=== PATIENT | male | born 1960 | race Caucasian/White ===

== ENCOUNTER 2019-12-22 19:21 | Emergency (ER) | payer MEDICARE, SELFPAY ==
[2019-12-22 19:46] VITALS: BP 132/90; PULSE 119; RESP 20; TEMP 37.6; O2SAT 99; BMI 23.6
--- NOTE | 2019-12-22 20:24 | ED.SEIZURE ---
HPI - Seizure General Chief Complaint: Seizure Stated Complaint: Seizure at approximately 18:00 Time Seen by Provider: 12/22/19 19:55 Source: patient and family Mode of arrival: Ambulatory Limitations: no limitations History of Present Illness HPI Narrative: 59-year-old male without a prior history of seizures here for evaluation of what is family describes a seizure. He is at his normal state health. He stated that he walked into kitchen. He states that he felt like the back of his neck ?seized up ?next thing he remembers is his family around him. His family states that they lowered him to the ground. He did not hit his head. He stated that he had a generalized shaking for approximately 20 seconds. They stated that he was somewhat confused afterwards for of 10-15 minutes. No loss of bowel or bladder. Patient does admit to being an alcoholic. He states that he did drink alcohol just prior to this seizure. He has never withdrawn from alcohol in the past. There was no trauma. Not on anticoagulation. Does not take any medications. He does state that he is in a fairly stressful situation at the moment. Had a family member recently . He is visiting this area from [facility]. No fevers. No neck pain. Related Data Allergies Allergy/AdvReac Type Severity Reaction Status Date / Time No Known Drug Allergies Allergy Verified 12/22/19 19:46 Review of Systems Constitutional Constitutional: Denies chills, Denies fever(s), Denies frequent falls and Denies headache(s) ENT Ears, Nose, Mouth, and Throat: Denies vertigo, Denies dizziness and Denies headache(s) Cardiovascular Cardiovascular: Denies chest pain, Denies rapid heart rate, Denies palpitations and Denies dyspnea Respiratory Respiratory: Denies cough and Denies dyspnea Gastrointestinal Gastrointestinal: Denies abdominal pain, Denies nausea and Denies vomiting Genitourinary Genitourinary: Denies dysuria Musculoskeletal Musculoskeletal: Denies myalgias and Denies arthralgias Integumentary/Breasts Skin/Breast: Denies lesions and Denies rash Neurologic Neurologic: Denies vertigo, Denies dizziness, Denies frequent falls, Denies headache(s) and Reports seizure-like activity Endocrine Endocrine: Denies palpitations Hematologic/Lymphatic Hematologic/Lymphatic: Denies easy bruising Patient History Medical History Alcoholism (Acute) Hypertension (Acute) Social History lives independently: Yes Exam Initial Vital Signs Initial Vital Signs: Vital Signs Temperature 99.7 F H 12/22/19 19:46 Pulse Rate 119 H 12/22/19 19:46 Respiratory Rate 20 12/22/19 19:46 Blood Pressure 132/90 12/22/19 19:46 Pulse Oximetry 99 12/22/19 19:46 Const General: cooperative, comfortable, well developed and well groomed Limitations: mental status not altered HENTX Head: normal to inspection and normocephalic Resp Effort & Inspection: normal respiratory effort Auscultation: clear to auscultation bilaterally Cardio Rate: tachycardic Rhythm: regular rhythm Pulses: radial pulses present GI Inspection: non-distended Palpation: soft Skin Lesions: no lesions Rashes: no rashes Neuro General: alert, awake and oriented x3 Cognition: normal cognition Speech: speech normal Gait: normal gait Motor: muscle tone normal throughout Sensory Exam: no sensory deficits noted Extrem General: normal to inspection and capillary refill normal Psych Appearance: grossly normal and well kempt Scores GCS [place] coma scale eye opening: Spontaneous [place] coma scale verbal response: Orientated [place] coma scale motor response: Obey commands Mik coma scale total score: 15 Course Orders Ordered: ED Orders 12/22/19 20:45 Basic Metabolic Panel Stat Complete Blood Count AUTO DIFF Stat Ethanol (ETOH) Stat Prolactin Stat Vital Signs Vital signs: Vital Signs - 8 hr 12/22/19 19:46 12/22/19 20:26 12/22/19 22:16 Temperature 99.7 F H Pulse Rate 119 H 96 H 96 H Respiratory Rate 20 18 Blood Pressure 132/90 Blood Pressure [Left Arm] 122/54 L 123/85 Pulse Oximetry 99 100 100 MDM - Seizure Lab Data Attestation: I reviewed the patient's lab results. Result diagrams: 12/22/19 20:45 12/22/19 20:45 Labs: Lab Results 12/22/19 12/22/19 Range/Units 20:45 20:45 WBC 11.5 H (4.5-11.0) X10^3/uL RBC 3.79 L (4.5-5.9) X10^6/uL Hgb 12.7 L (13.5-17.5) g/dL Hct 36.6 L (41-53) % MCV 96.6 (80-100) fL MCH 33.4 (26-34) PG MCHC 34.6 (30-36) % RDW 14.4 (11.6-14.8) % Plt Count 120 L (150-400) X10^3/uL Neut % (Auto) 77.8 H (50-75) % Lymph % (Auto) 10.7 L (25-40) % Ness % (Auto) 9.8 (3-14) % Eos % (Auto) 0.8 L (2-4) % Baso % (Auto) 0.9 (0-2) % Neut # (Auto) 9000 H (4004-1362) /uL Lymph # (Auto) 1200 (5670-1099) /uL Ness # (Auto) 1100 H (0-900) /uL Eos # (Auto) 100 (0-450) /uL Baso # (Auto) 100 (0-100) /uL Sodium 137 (137-145) mmol/L Potassium 3.5 (3.4-5.1) mmol/L Chloride 98 (98-107) mmol/L Carbon Dioxide 26 (22-32) mmol/L BUN 20 (9-20) mg/dL Creatinine 1.00 (0.66-1.25) mg/dL Estimated GFR > 60.0 (>60) mL/min BUN/Creatinine Ratio 20.0 (6-22) Glucose 157 H (70-100) mg/dL Calcium 9.9 (8.4-10.2) mg/dL Prolactin 12.1 (3.7-17.9) ng/mL Ethyl Alcohol < 10 ( - 10) mg/dL MDM Narrative Medical decision making narrative: Patient is alert oriented x3. Had a normal neurologic exam. His alcohol level is 0 here in the ER however he stated that he did drink alcohol just prior to the seizure. Low suspicion that this was an alcohol withdrawal seizure. He has never had any seizures in the past. His electrolytes were unremarkable. I feel that given his normal neurologic exam we could hold on a head CT for now. I did discuss with him and his brothers at bedside regarding his seizure activity. Informed him that he cannot drive until he is cleared by his primary doctor or neurology. We also discussed his alcohol use. Patient states that he does not want any treatment currently. I feel we can hold on further workup for now. They were given return precautions and follow-up instructions. They expressed understanding and agreement with plan. Discharge Plan Departure Patient Disposition: Home Clinical Impression: Seizure-like activity Discharge Date/Time: 12/22/19 22:16 Instructions: DI for Seizure Disorder -- Adult Activity Restrictions/Additional Instructions: No driving until your cleared by either your neurologist or your primary doctor. Also recommend no climbing on ladders or swimming. When you return home please contact your primary doctor for follow-up. Return to the emergency department for any new or worsening symptoms
[2019-12-22 20:26] VITALS: BP 122/54; PULSE 96; O2SAT 100
[2019-12-22 20:52] LABS: Add Manual Diff / Slide Review NO; Basophils Absolute Auto 100 /uL (0-100); Basophils Percent Auto 0.9 % (0-2); Eosinophils Absolute Auto 100 /uL (0-450); Eosinophils Percent Auto 0.8 % (2-4); Hematocrit 36.6 % (41-53); Hemoglobin 12.7 g/dL (13.5-17.5); Lymphocytes Absolute Auto 1200 /uL (1100-4500); Lymphocytes Percent Auto 10.7 % (25-40); Mean Corpuscular HGB Conc 34.6 % (30-36); Mean Corpuscular Hemoglobin 33.4 PG (26-34); Mean Corpuscular Volume 96.6 fL (80-100); Monocytes Absolute Auto 1100 /uL (0-900); Monocytes Percent Auto 9.8 % (3-14); Neutrophils Absolute Auto 9000 /uL (1500-7000); Neutrophils Percent Auto 77.8 % (50-75); Platelet Count 120 X10^3/uL (150-400); Red Blood Cell Count 3.79 X10^6/uL (4.5-5.9); Red Cell Distribution Width 14.4 % (11.6-14.8); White Blood Cell Count 11.5 X10^3/uL (4.5-11.0)
[2019-12-22 21:03] LABS: Blood Urea Nitrogen 20 mg/dL (9-20); Calcium 9.9 mg/dL (8.4-10.2); Carbon Dioxide 26 mmol/L (22-32); Chloride 98 mmol/L (98-107); Estimated Glomerular Filt Rate > 60.0 mL/min (>60); Ethanol (ETOH) < 10 mg/dL; Glucose 157 mg/dL (70-100); HEMOLYSIS < 15 (0-50); Potassium 3.5 mmol/L (3.4-5.1); Sodium 137 mmol/L (137-145)
[2019-12-22 21:20] LABS: Prolactin 12.1 ng/mL (3.7-17.9)
[2019-12-22 22:16] VITALS: BP 123/85; PULSE 96; RESP 18; O2SAT 100
== END 2019-12-22 22:16 | disposition home or self-care (01) ==
PROVIDERS: Emergency Provider Emergency Medicine
DX: R56.9 Unspecified convulsions (principal); R00.0 Tachycardia, unspecified
CPT/HCPCS: 36415; 80048; 80320; 84146; 85025; 99282; 99283